=== PATIENT | male | born 1950 | race Native Hawaiian/Other Pacific Islander ===

== ENCOUNTER 2020-07-26 18:56 | Outpatient (CLI) | payer OTHER, BC ==
[2020-07-26 23:14] LABS: PLATELET COUNT 294 K/uL (142-355)
[2020-07-26 23:48] LABS: POTASSIUM 4.8 mmol/L (3.6-5.2)
== END 2020-07-26 23:41 | disposition home or self-care (01) ==
LOC: LAB 18:56
PROVIDERS: Family Medicine
DX: Z00.00 Encounter for general adult medical examination without abnormal findings (principal); I10 Essential (primary) hypertension; E03.8 Other specified hypothyroidism; E55.9 Vitamin D deficiency, unspecified; E53.8 Deficiency of other specified B group vitamins; R53.83 Other fatigue; R53.81 Other malaise; Z12.5 Encounter for screening for malignant neoplasm of prostate; Z79.899 Other long term (current) drug therapy
CPT/HCPCS: 80053; 80061; 82306; 82607; 84153; 84439; 84443; 85027; 86376